=== PATIENT | male | born 1990 | race American Indian/Alaskan Native ===

== ENCOUNTER 2021-07-23 21:35 | Emergency (ER) | payer SELFPAY ==
[2021-07-24 04:57] VITALS: BP 110/73
[2021-07-24 09:55] LABS: Bilirubin,Urine NEG (Negative); Blood,Urine SM (Negative); Color,Urine Yellow (Yellow); Mucus,Urine 3+ /HPF
[2021-07-24 09:58] LABS: WBC,Urine > 182.0 /HPF (0.0-6.0)
== END 2021-07-24 05:00 | disposition left against medical advice (07) ==
LOC: ED 21:35
DX: R10.2 Pelvic and perineal pain (principal); M25.559 Pain in unspecified hip; Z53.21 Procedure and treatment not carried out due to patient leaving prior to being seen by health care provider
CPT/HCPCS: 81001

== ENCOUNTER 2021-07-24 04:51 | Emergency (ER) | payer SELFPAY ==
--- NOTE | 2021-07-24 05:44 | Emergency Department Report ---
ED Male HPI - General Stated complaint: PAIN WITH URINATION Time Seen by Provider: 07/24/21 05:39 Source: patient Mode of arrival: Ambulatory Limitations: No Limitations - History of Present Illness Initial comments: 31-year-old [place] male presents emerged department complaining of having penile drainage and burning after having sex with 3 women in the last 2 weeks. Some sex was unprotected and he developed the symptoms having some tingling to his testicular region as well. No fever, chills, sweats. No chest pain palpitations. No nausea, no vomiting. MD Complaint: penile discharge, dysuria -: Gradual Location: penis Radiation: none Severity: mild Improves with: none Worsens with: urination discharge - Related Data Previous Rx's Medication Instructions Recorded Last Taken Type Azithromycin [Zithromax TAB] 1,000 mg PO QDAY #2 07/24/21 Unknown Rx metroNIDAZOLE [Flagyl] 500 mg PO Q12HR #4 tab 07/24/21 Unknown Rx Allergies Allergy/AdvReac Type Severity Reaction Status Date / Time SHELLFISH Allergy Itching Uncoded 07/24/21 04:53 ED Review of Systems ROS: Stated complaint: PAIN WITH URINATION Other details as noted in HPI ED Past Medical Hx - Medications Home Medications: Home Medications Medication Instructions Recorded Confirmed Last Taken Type Azithromycin [Zithromax TAB] 1,000 mg PO QDAY #2 07/24/21 Unknown Rx metroNIDAZOLE [Flagyl] 500 mg PO Q12HR #4 tab 07/24/21 Unknown Rx ED Physical Exam - General General appearance: alert, in no apparent distress - Head Head exam: Present: atraumatic, normocephalic - Eye Eye exam: Present: normal appearance - ENT ENT exam: Present: mucous membranes moist - Neck Neck exam: Present: normal inspection - Respiratory Respiratory exam: Present: normal lung sounds bilaterally. Absent: respiratory distress - Cardiovascular Cardiovascular Exam: Present: regular rate, normal rhythm. Absent: systolic murmur, diastolic murmur, rubs, gallop - GI/Abdominal GI/Abdominal exam: Present: soft, normal bowel sounds - Rectal Rectal exam: Present: deferred - Extremities Exam Extremities exam: Present: normal inspection - Back Exam Back exam: Present: normal inspection - Neurological Exam Neurological exam: Present: alert, oriented X3 - Psychiatric Psychiatric exam: Present: normal affect, normal mood - Skin Skin exam: Present: warm, dry, intact, normal color. Absent: rash ED Medical Decision Making - Medical Decision Making Possible STD exposure Critical care attestation.: If time is entered above; I have spent that time in minutes in the direct care of this critically ill patient, excluding procedure time. ED Disposition Clinical Impression: Possible exposure to STD, Abnormal penile discharge Disposition: HOME / SELF CARE / HOMELESS Is pt being admited?: No Does the pt Need Aspirin: No Condition: Stable Instructions: Gonorrhea Test, Gonorrhea, Safe Sex Prescriptions: metroNIDAZOLE [Flagyl] 500 mg PO Q12HR #4 tab Azithromycin [Zithromax TAB] 1,000 mg PO QDAY #2
[2021-07-24] MEDS ORDERED: LIDOCAINE-MPF (1%) 10 MG/1 ML VIAL 5 ML INFILTRATI ONE (05:47)
[2021-07-24 06:15] VITALS: BP 107/77
== END 2021-07-26 02:40 | disposition home or self-care (01) ==
LOC: ED 04:51
DX: Z20.2 Contact with and (suspected) exposure to infections with a predominantly sexual mode of transmission (principal); R36.9 Urethral discharge, unspecified
CPT/HCPCS: 87591; 99283